=== PATIENT | female | born 1990 | race Caucasian/White ===

== ENCOUNTER 2022-05-06 13:37 | Emergency (ER) | payer BC, SELFPAY ==
[2022-05-06 13:48] VITALS: BP 151/90; PULSE 150; RESP 18; TEMP 37; O2SAT 100
[2022-05-06 14:25] LABS: Appearance Urine Slightly Cloudy (Clear); Bilirubin Urine Negative (Negative); Blood Urine Negative (Negative); Color Urine Yellow (Yellow); Glucose Urine Negative (Negative); Ketones Urine Negative (Negative); Leukocyte Esterase Urine Trace (Negative); Nitrite Urine Negative (Negative); Protein Urine Negative (Negative); Urobilinogen Urine 0.2 (0.2-1.0); pH Urine 5.5 (5.0-8.5)
[2022-05-06 14:29] LABS: HCG Qualitative* Negative (Negative)
[2022-05-06 14:48] LABS: RBC Urine 0-2 (0-2)
[2022-05-06 14:49] LABS: Bacteria Urine Few; Squamous Epithelial Cell Urine Few (None-Few)
--- NOTE | 2022-05-06 15:51 | ED.GENADULT ---
HPI - General Adult General Time Seen by Provider: 15:51 Date Seen: 05/06/22 Chief complaint: Abdominal Pain Stated complaint: Abdominal pain Time Seen by Provider: 05/06/22 15:39 Source: patient Mode of arrival: ambulatory Limitations: no limitations History of Present Illness HPI narrative: Pepper is a 31-year-old 2 para 2001 who presents to the emergency department from urgent care with abdominal pain. Patient states that over the last month she has had intermittent left-sided abdominal pain, she feels that when she eats it gets progressively worse, lasting 5-10 minutes, she tries to take Motrin for this, she gets associated nausea but no vomiting, she denies any diarrhea, constipation or blood in the stool. Not had any fevers or chills, no upper respiratory complaints, difficulty with breathing or chest pain. Pain is dull ache with intermittent sharp pains which shoots to her umbilicus area. Pain was quite severe in the waiting room, it is calmed down at this time, she drove here. She tried to get in to clinic and they were full, Urgent Care decided to send her to the emergency department. Patient has had normal menstrual cycles. She denies any back pain. No history of any abdominal surgeries, she did have an IUD surgical removed about for 5 years ago. Last menstrual period was April 13, she gets them monthly, lasting 7 days, they are heavy and painful, she is . she was seen in ED August 2021, imaging showed salpingitis on TV. Treated with Doxycycline. Patient was also seen at the [facility] for possible pelvic congestion clinic, recommendations at that time were for hormones. Prescribed naproxen at that time. Related Data Previous Rx's Medication Instructions Recorded norgestimate 0.25 mg-ethinyl 1 tab PO QDAY #84 tabs 05/14/22 estradiol 35 mcg tablet (Sprintec (28)) Allergies Allergy/AdvReac Type Severity Reaction Status Date / Time Gluten Meal Allergy Unknown Unknown Uncoded 05/14/22 13:52 Review of Systems Status of ROS: Reports: 10 or more systems reviewed and unremarkable except as noted in History and below [facility] Medical History (Updated 05/14/22 @ 16:58 by Megan Gold MD) Hemorrhagic cyst of left ovary (05/06/22) History of vaginal delivery Salpingitis (09/07/19) Surgical History (Updated 05/13/22 @ 12:57 by Aria Arizmendi) History of laparoscopy (08/12/16) Social History Smoking Status: Never smoker Do you use any of these nicotine containing products: None Second hand tobacco smoke exposure: No How often do you have a drink containing alcohol: never AUDIT-C Alcohol total score: 0 Non-prescribed substance use: denies use Exam Narrative: Exam Narrative: General: No obvious distress sitting comfortably, nontoxic in appearance HEENT: Oropharynx clear and moist, pupils equal round reactive to light, extraocular muscles intact Neck: Supple full range of motion : Lungs clear to auscultation bilaterally Heart: Sinus tachycardia, S1-S2 Abdomen: Soft, mild tenderness to palpation epigastric and left upper quadrant area, rebound or guarding, bowel sounds present Muscle skeletal: Moving her upper lower extremities with no difficulty : Neuro: awake and oriented x3 Const: Vital Signs, click to edit/add: Vital Signs - 24 hr 05/06/22 13:48 05/06/22 17:32 Temperature 98.6 F Pulse Rate [Pulse Oximeter] 150 H 133 H Respiratory Rate 18 18 Blood Pressure [Ri ght Upper Arm] 151/90 H 133/96 H Pulse Oximetry 100 100 Oxygen Delivery Me thod Room Air Course Course Hospital Course: 3:45 PM: AIDET performed. vitals show tachycardia, continue to monitor, workup will include IV peripheral, 0.9 normal saline bolus, 30 mg IV Toradol, urine , urinalysis and urine culture, CBC, CRP CMP and lipase, will await to see lab results to see if further imaging will be obtained. Differential diagnosis include but not limited to life-threatening diagnosis of appendicitis, ischemia, bowel perforation, bowel obstruction, ectopic , volvulus. Other considerations are gastritis, cholecystitis, pancreatitis, hepatitis, PID, cervicitis endometritis, IUP dysfunctional uterine bleeding ovarian cyst/torsion as well as other etiologies. Reevaluation(s) Reevaluation #1: Patient updated on her lab results, CBC showed a mild leukocytosis, CRP was less than 0.05, metabolic panel unremarkable, including liver function tests and lipase. Based on her history will obtain TV, and TA pelvic ultrasound, patient's pain has been controlled. Time: 18:04 Reevaluation #2: Patient was updated on her imaging results, Left ovarian structure is probably a hemorrhagic cyst. Otherwise normal sonographic appearance of the pelvis. Plan would be to discharge, urine culture was sent C she had few bacteria and trace leukocyte esterase, less likely urinary tract infection, she will continue with [id number] Motrin 600-800 mg every 4-6 hours as needed for pain, to follow-up with primary care provider or [facility] in the next 7-10 days, return precautions given. Time: 18:05 Vital Signs Vital signs: Initial Vital Signs Temperature 98.6 F 05/06/22 13:48 Temperature Source Temporal Artery Scan 05/06/22 13:48 Pulse Rate 150 H 05/06/22 13:48 Pulse Rhythm 05/06/22 13:48 Respiratory Rate 18 05/06/22 13:48 Blood Pressure 151/90 H 05/06/22 13:48 Blood Pressure Mean 110 05/06/22 13:48 Blood Pressure Position Sitting 05/06/22 13:48 Pulse Oximetry 100 05/06/22 13:48 Oxygen Delivery Method 05/06/22 13:48 Vital Signs Temperature 98.6 F 05/06/22 13:48 Pulse Rate 150 H 05/06/22 13:48 Respiratory Rate 18 05/06/22 13:48 Blood Pressure 151/90 H 05/06/22 13:48 Pulse Oximetry 100 05/06/22 13:48 Oxygen Delivery Method 05/06/22 13:48 Temperature 98.6 F 05/06/22 13:48 Pulse Rate 107 H 05/06/22 18:19 Respiratory Rate 18 05/06/22 18:19 Blood Pressure 118/94 H 05/06/22 18:28 Pulse Oximetry 100 05/06/22 18:19 Oxygen Delivery Method 05/06/22 18:19 Medical Decision Making Lab Data Labs: Lab Results 05/06/22 05/06/22 05/06/22 Range/Units 14:00 14:00 16:20 WBC 11.73 H (4.50-11.00) K/uL RBC 5.18 (4.00-5.20) m/uL Hgb 15.5 (12.0-16.0) gm/dL Hct 45.4 (33.0-51.0) % MCV 88 (80-100) fL MCH 30 (26-34) pg MCHC 34 (32-36) gm/dL RDW Coeff of Dione 11.7 (11.5-15.5) % Plt Count 340 (140-440) K/uL Neut % (Auto) 83.7 H (42.0-72.0) % Lymph % (Auto) 12.6 L (20-44) % [place] % (Auto) 3.2 (0.0-11.0) % Eos % (Auto) 0.0 (0.0-7.0) % Baso % (Auto) 0.4 (0.0-3.0) % Neut # (Auto) 9.80 H (1.7-7.0) K/uL Lymph # (Auto) 1.50 (0.90-2.90) K/uL [place] # (Auto) 0.40 (0.00-0.90) K/UL Eos # (Auto) 0.00 (0.00-0.50) K/uL Baso # (Auto) 0.00 (0.00-0.30) K/uL Abs Immat Gran (auto) 0.00 (0.00-0.30) K/uL Imm/Tot Granulo (auto) 0.1 % Sodium (135-149) mmol/L Potassium (3.6-5.1) mmol/L Chloride (96-114) mmol/L Carbon Dioxide (20-32) mmol/L BUN (5-24) mg/dL Creatinine (0.5-1.5) mg/dL Estimated GFR ml/min Glucose (60-115) mg/dL Calcium (8.4-10.6) mg/dL Total Bilirubin (0.1-1.5) mg/dL AST (12-35) U/L ALT (4-35) U/L Alkaline Phosphatase (40-150) U/L C-Reactive Protein (0.5-1.0) mg/dL Total Protein (6.0-8.3) g/dL Albumin (3.3-5.0) g/dL Lipase (23-300) U/L HCG, Qual Negative (Negative) Urine Color Yellow (Yellow) Urine Appearance Slightly Cloudy A (Clear) Urine pH 5.5 (5.0-8.5) Ur Specific [place] 1.010 (1.000-1.030) Urine Protein Negative (Negative) Urine Glucose (UA) Negative (Negative) Urine Ketones Negative (Negative) Urine Blood Negative (Negative) Urine Nitrite Negative (Negative) Urine Bilirubin Negative (Negative) Urine Urobilinogen 0.2 (0.2-1.0) Ur Leukocyte Esterase Trace A (Negative) Urine RBC 0-2 (0-2) Urine WBC 2-5 (0-5) Ur Squamous Epith Cells Few (None-Few) Urine Bacteria Few A (None) C.trachomatis Ampl DNA NOT DETECTED (No Detected) N.gonorrhoeae Ampl DNA NOT DETECTED (No Detected) 05/06/22 Range/Units 16:20 WBC (4.50-11.00) K/uL RBC (4.00-5.20) m/uL Hgb (12.0-16.0) gm/dL Hct (33.0-51.0) % MCV (80-100) fL MCH (26-34) pg MCHC (32-36) gm/dL RDW Coeff of Dione (11.5-15.5) % Plt Count (140-440) K/uL Neut % (Auto) (42.0-72.0) % Lymph % (Auto) (20-44) % [place] % (Auto) (0.0-11.0) % Eos % (Auto) (0.0-7.0) % Baso % (Auto) (0.0-3.0) % Neut # (Auto) (1.7-7.0) K/uL Lymph # (Auto) (0.90-2.90) K/uL [place] # (Auto) (0.00-0.90) K/UL Eos # (Auto) (0.00-0.50) K/uL Baso # (Auto) (0.00-0.30) K/uL Abs Immat Gran (auto) (0.00-0.30) K/uL Imm/Tot Granulo (auto) % Sodium 140 (135-149) mmol/L Potassium 3.9 (3.6-5.1) mmol/L Chloride 105 (96-114) mmol/L Carbon Dioxide 25 (20-32) mmol/L BUN 8 (5-24) mg/dL Creatinine 0.5 (0.5-1.5) mg/dL Estimated GFR 130 ml/min Glucose 101 (60-115) mg/dL Calcium 9.7 (8.4-10.6) mg/dL Total Bilirubin 0.8 (0.1-1.5) mg/dL AST 21 (12-35) U/L ALT 18 (4-35) U/L Alkaline Phosphatase 71 (40-150) U/L C-Reactive Protein < 0.5 L (0.5-1.0) mg/dL Total Protein 8.1 (6.0-8.3) g/dL Albumin 5.0 (3.3-5.0) g/dL Lipase 50 (23-300) U/L HCG, Qual (Negative) Urine Color (Yellow) Urine Appearance (Clear) Urine pH (5.0-8.5) Ur Specific [place] (1.000-1.030) Urine Protein (Negative) Urine Glucose (UA) (Negative) Urine Ketones (Negative) Urine Blood (Negative) Urine Nitrite (Negative) Urine Bilirubin (Negative) Urine Urobilinogen (0.2-1.0) Ur Leukocyte Esterase (Negative) Urine RBC (0-2) Urine WBC (0-5) Ur Squamous Epith Cells (None-Few) Urine Bacteria (None) C.trachomatis Ampl DNA (No Detected) N.gonorrhoeae Ampl DNA (No Detected) Discharge Plan Discharge Clinical Impression: Hemorrhagic cyst of left ovary Patient Disposition: Home, Self-Care Condition: Improved Instructions: Ovarian Cyst (ED) Additional Instructions: To take Motrin 600 mg or Tylenol 800 mg every 6 hours as needed for pain, to [facility] or Primary care provider in the next 7-10 days for follow up. Return if worsening symptoms. Activity Level: Activity as Tolerated Prescriptions: No Action norgestimate-ethinyl estradiol [Sprintec (28)] 0.25-35 mg-mcg tablet 1 tab PO QDAY Qty: 84 3RF Follow Up/Referrals: Kay Blanton DO [Primary Care Provider] - Stand Alone Forms: [employer] Info Instructions
[2022-05-06] MEDS: 0.9 % SODIUM CHLORIDE 1000 ml 1,000 ML IV (16:25)
[2022-05-06] MEDS: KETOROLAC 30 MG/ML inj IVP (16:25)
[2022-05-06 16:35] LABS: Basophils Percent Auto 0.4 % (0.0-3.0); Hematocrit 45.4 % (33.0-51.0); Hemoglobin* 15.5 gm/dL (12.0-16.0); Immature Granulocytes Pct Auto 0.1 %; Lymphocytes Percent Auto 12.6 % (20-44); Mean Corpuscular HGB Conc 34 gm/dL (32-36); Mean Corpuscular Hemoglobin 30 pg (26-34); Mean Corpuscular Volume 88 fL (80-100); Monocytes Percent Auto 3.2 % (0.0-11.0); Neutrophils Percent Auto 83.7 % (42.0-72.0); Platelet Count* 340 K/uL (140-440); RDW Coefficient of Variation % 11.7 % (11.5-15.5); Red Blood Count 5.18 m/uL (4.00-5.20); White Blood Count* 11.73 K/uL (4.50-11.00)
[2022-05-06 16:36] LABS: Slide Review Reflex No
[2022-05-06 16:55] LABS: Chloride* 105 mmol/L (96-114); Potassium* 3.9 mmol/L (3.6-5.1); Sodium* 140 mmol/L (135-149)
[2022-05-06 16:58] LABS: Carbon Dioxide* 25 mmol/L (20-32); Creatinine* 0.5 mg/dL (0.5-1.5); Estimated Glomerular Filt Rate 130 ml/min
[2022-05-06 16:59] LABS: Alanine Aminotransferase* 18 U/L (4-35); Alkaline Phosphatase* 71 U/L (40-150); Aspartate Amino Transferase* 21 U/L (12-35); Bilirubin Total* 0.8 mg/dL (0.1-1.5); Blood Urea Nitrogen* 8 mg/dL (5-24); Calcium* 9.7 mg/dL (8.4-10.6); Glucose* 101 mg/dL (60-115); Lipase* 50 U/L (23-300); Total Protein* 8.1 g/dL (6.0-8.3)
[2022-05-06 17:03] LABS: C Reactive Protein* < 0.5 mg/dL (0.5-1.0)
--- NOTE | 2022-05-06 17:08 | CRLHL7_ITS ---
For Patients: As a result of the Century Cures Act, medical imaging exams and procedure reports are released immediately into your electronic medical record. You may view this report before your referring provider. If you have questions, please contact your health care provider. INDICATION: Left lower quadrant pain. TECHNIQUE: Ultrasound pelvis transvaginal for better assessment or to better visualize the endometrium. Real-time sonographic images with spectral and color Doppler imaging of the ovaries were obtained. COMPARISON: None. FINDINGS: Uterus: 8.5 x 4.3 x 5.3 cm. Normal echotexture of the myometrium. No masses. Endometrium: Transvaginal imaging was performed to better evaluate the endometrium. Endometrial thickness measures 1.7 mm. No sign of endometrial mass or fluid. Ovaries: The right ovary measures 3.8 x 2.4 x 2.8 cm and left ovary measures 3.7 x 2.5 x 3.7 cm. Cystic structure in the left ovary measures 2.2 x 1.3 x 2 cm and is likely hemorrhagic cyst. No ovarian or adnexal masses. Normal arterial and venous blood flow in both ovaries. Cul-de-sac: Physiologic amount of free fluid. IMPRESSION: Left ovarian structure is probably a hemorrhagic cyst. Otherwise normal sonographic appearance of the pelvis. Dictated by Rachid Cruz MD @ 05/06/2022 5:59:07 PM (Electronically Signed)
[2022-05-06 17:32] VITALS: BP 133/96; PULSE 133; RESP 18; O2SAT 100
[2022-05-06 18:19] VITALS: PULSE 107; RESP 18; O2SAT 100
[2022-05-06 18:28] VITALS: BP 118/94
[2022-05-06 19:01] LABS: Chlamydia DNA Amplified* NOT DETECTED (No Detected); GC DNA Amplified* NOT DETECTED (No Detected)
== END 2022-05-06 18:30 | disposition home or self-care (01) ==
LOC: ED 18:18
PROVIDERS: Family Medicine; Emergency Provider Student in an Organized Health Care Education/Training Program; PCP Family Medicine
DX: N83.291 Other ovarian cyst, right side (principal)
CPT/HCPCS: 36415; 76830; 76857; 80053; 81003; 81015; 83690; 84703; 85025; 86140; 87086; 87491; 87591; 93976; 96361; 96374; 99283; 99284; J1885; J7030

== ENCOUNTER 2022-12-31 08:28 | Outpatient (CLI) | payer BC, SELFPAY ==
--- NOTE | 2022-12-31 09:00 | CRLHL7_ITS ---
For Patients: As a result of the Century Cures Act, medical imaging exams and procedure reports are released immediately into your electronic medical record. You may view this report before your referring provider. If you have questions, please contact your health care provider. INDICATION: 32 year-old female. Unintentional weight loss. Intermittent nausea. Intermittent pain. TECHNIQUE: CT of the abdomen and pelvis. 52 cc nonionic Isovue-370 administered. COMPARISON: Abdominal pelvic CT September 08, 2019. Correlation is made with a pelvic ultrasound May 06, 2022. FINDINGS: Clear included lung bases. The liver, spleen, pancreas, gallbladder, both adrenal glands and both kidneys are within normal limits. Normal caliber abdominal aorta and iliac arteries. Normal inferior vena cava. No ascites or lymphadenopathy. The stomach and duodenum although incompletely distended are within normal limits. There is no evidence for small or large bowel obstruction or ileus. No ascites or lymphadenopathy. The urinary bladder, uterus, and both adnexa are within normal limits. Normal included skeleton. IMPRESSION: Negative CT of the abdomen and pelvis. No significant change. Please note that all CT scans at this facility use dose modulation, iterative reconstruction, and/or weight-based dosing when appropriate to reduce radiation dose to as low as reasonably achievable. Dictated by Nathan Davila MD @ 12/31/2022 9:31:45 AM (Electronically Signed)
== END 2022-12-31 08:29 | disposition home or self-care (01) ==
PROVIDERS: PCP Family Medicine; Visit Provider Internal Medicine Gastroenterology
DX: R63.4 Abnormal weight loss (principal); R11.0 Nausea
CPT/HCPCS: 74177; Q9967

== ENCOUNTER 2023-03-20 07:51 | Emergency (ER) | payer BC, SELFPAY ==
[2023-03-20 08:17] VITALS: BP 133/73; PULSE 90; RESP 18; TEMP 36.8; O2SAT 100; BMI 17.7
--- NOTE | 2023-03-20 08:30 | ED.GENADULT ---
HPI - General Adult General Chief complaint: Abdominal Pain Stated complaint: pelvic pain Time Seen by Provider: 03/20/23 07:59 Source: patient Mode of arrival: ambulatory Limitations: no limitations History of Present Illness HPI narrative: Patient is a 32-year-old with history of ovarian cysts who developed sudden onset of pelvic pain earlier this morning. It was sharp and she says severe at the time although it has improved now. More in the left lower quadrant than the right but she says it involved really the entire pelvis. She had nausea at that time, no vomiting. She denies constipation or diarrhea, black or bloody stools, fevers, urinary symptoms. She has been previously on OCPs to help regulate periods but she discontinued those recently due to nausea. She does not have any specific concerns about . She does not have any current vaginal bleeding. Her only abdominal surgery was for retrieval of an IUD that migrated outside of the uterus. Related Data Home Medications Medication Instructions Recorded Confirmed No Known Home Medications 03/20/23 03/20/23 Allergies Allergy/AdvReac Type Severity Reaction Status Date / Time Gluten Meal Allergy Unknown Unknown Uncoded 12/31/22 09:19 Review of Systems Status of ROS: Reports: 10 or more systems reviewed and unremarkable except as noted in History and below [facility] Medical History History of vaginal delivery Salpingitis (09/07/19) ?N70.91 - Salpingitis, unspecified (ICD-10) Hemorrhagic cyst of left ovary (05/06/22) ?N83.202 - Unspecified ovarian cyst, left side (ICD-10) Surgical History History of laparoscopy (08/12/16) ?Z98.890 - Other specified postprocedural states (ICD-10) Social History Smoking Status: Never smoker Do you use any of these nicotine containing products: None Second hand tobacco smoke exposure: No How often do you have a drink containing alcohol: never AUDIT-C Alcohol total score: 0 Non-prescribed substance use: denies use Exam Narrative: Exam Narrative: Vital signs as noted above. In general, an alert, well-appearing patient. Looks comfortable. Head: Normocephalic, atraumatic. Eyes: Pupils are equal reactive. Extraocular movements are full. Conjunctivae are normal. ENT: Mucous membranes are moist. Neck: Supple without lymphadenopathy. Heart: Regular rate and rhythm. No murmur or rub. Lungs: Clear bilaterally. No increased work of breathing, crackles or wheezes. Abdomen: Soft and nontender. Extremities: Well perfused. No edema. No calf tenderness. Pulses intact. Neurologic: Patient is alert and oriented to person and place. Speech is fluent. Face is symmetric. Moves all extremities equally. Affect: Normal. Skin: Warm and dry. Well perfused. Const: Vital Signs, click to edit/add: Vital Signs - 24 hr 03/20/23 08:17 Temperature 98.2 F Pulse Rate [Right Pulse Oximeter] 90 Respiratory Rate 18 Blood Pressure [Ri ght Upper Arm] 133/73 Pulse Oximetry 100 Oxygen Delivery Me thod Room Air Documenting provider has reviewed patient's vital signs: yes Course Course ED Course: Patient did not require anything for pain while here. A urinalysis showed 2-5 red cells, 5-10 white blood cells. She did not have any urinary symptoms, I do not think that it is worthwhile treating for urinary tract infection. Likewise, with a minimal number of red blood cells I felt kidney stone was less likely and decided to pursue pelvic ultrasound instead. She did find the ultrasound uncomfortable and has a little more pain afterwards but again denied the need for anything for pain. Ultrasound read as follows:COMPARISON: CT dated 12/31/2022. FINDINGS: Uterus: Retroflexed, measuring 5.6 x 4.7 x 8 cm. Normal echotexture of the myometrium. No masses. Endometrium: Transvaginal imaging was performed to better evaluate the endometrium. Endometrial thickness measures 12 mm. No sign of endometrial mass or fluid. Right ovary 4.2 x 2.1 x 4.4 cm. Left ovary 2.4 x 2.2 x 3.8 cm. Right ovarian hemorrhagic cyst measuring less than 2 cm with internal reticular echoes for which management guidelines recommend no routine follow-up. Normal right ovarian venous and left ovarian arterial blood flow is demonstrated on spectral Doppler. Cul-de-sac: Small volume pelvic ascites within physiologic limits of normal. Review of the recent prior abdominal pelvic CT dated 12/31/2022 is notable for prominent bilateral periuterine vessels with a right ovarian vein measuring 7 mm in caliber (series 2; image 74). Consider pelvic congestion syndrome as the cause for the patient`s symptoms. IMPRESSION: Small hemorrhagic right ovarian follicular cyst for which consensus guidelines recommend no routine follow-up. Retroflexed uterus. Presentation is consistent with hemorrhagic cyst, at this time the ovaries show good blood flow, her pain is improved, and she does not have any large this. I think torsion is very unlikely. Abdominal exam is benign. Other labs show a normal white blood cell counts, CRP less than 0.5, metabolic panel is normal. Patient is comfortable with discharge. Reviewed with her that pain should be stable to improving. If she has recurrence of severe pain, develops fever, vomiting or other worsening she should return for re-evaluation. Otherwise follow up as needed with her gynecologic MD. Vital Signs Vital signs: Initial Vital Signs Temperature 98.2 F 03/20/23 08:17 Temperature Source Temporal Artery Scan 03/20/23 08:17 Pulse Rate 90 03/20/23 08:17 Respiratory Rate 18 03/20/23 08:17 Blood Pressure 133/73 03/20/23 08:17 Blood Pressure Mean 93 03/20/23 08:17 Blood Pressure Position Sitting 03/20/23 08:17 Pulse Oximetry 100 03/20/23 08:17 Oxygen Delivery Method Room Air 03/20/23 08:17 Vital Signs Temperature 98.2 F 03/20/23 08:17 Pulse Rate 90 03/20/23 08:17 Respiratory Rate 18 03/20/23 08:17 Blood Pressure 133/73 03/20/23 08:17 Pulse Oximetry 100 03/20/23 08:17 Oxygen Delivery Method Room Air 03/20/23 08:17 Temperature 98.2 F 03/20/23 08:17 Pulse Rate 90 03/20/23 08:17 Respiratory Rate 18 03/20/23 08:17 Blood Pressure 133/73 03/20/23 08:17 Pulse Oximetry 100 03/20/23 08:17 Oxygen Delivery Method Room Air 03/20/23 08:17 Medical Decision Making Lab Data Labs: Lab Results 03/20/23 03/20/23 Range/Units 08:29 08:44 WBC 8.19 (4.50-11.00) K/uL RBC 4.93 (4.00-5.20) m/uL Hgb 14.9 (12.0-16.0) gm/dL Hct 43.7 (33.0-51.0) % MCV 89 (80-100) fL MCH 30 (26-34) pg MCHC 34 (32-36) gm/dL RDW Coeff of Dione 11.9 (11.5-15.5) % Plt Count 304 (140-440) K/uL Neut % (Auto) 78.3 H (42.0-72.0) % Lymph % (Auto) 15.9 L (20-44) % [place] % (Auto) 5.1 (0.0-11.0) % Eos % (Auto) 0.4 (0.0-7.0) % Baso % (Auto) 0.2 (0.0-3.0) % Neut # (Auto) 6.40 (1.7-7.0) K/uL Lymph # (Auto) 1.30 (0.90-2.90) K/uL [place] # (Auto) 0.40 (0.00-0.90) K/UL Eos # (Auto) 0.03 (0.00-0.50) K/uL Baso # (Auto) 0.02 (0.00-0.30) K/uL Abs Immat Gran (auto) 0.01 (0.00-0.30) K/uL Imm/Tot Granulo (auto) 0.1 % Sodium 138 (135-149) mmol/L Potassium 4.5 (3.6-5.1) mmol/L Chloride 104 (96-114) mmol/L Carbon Dioxide 26 (20-32) mmol/L Anion Gap 8 (7-15) mEq/L BUN 14 (5-24) mg/dL Creatinine 0.6 (0.5-1.5) mg/dL Estimated Creat Clear 101.12 Estimated GFR 124 ml/min Glucose 99 (60-115) mg/dL Calcium 9.3 (8.4-10.6) mg/dL C-Reactive Protein < 0.5 L (0.5-1.0) mg/dL Urine Color Yellow (Yellow) Urine Appearance Clear (Clear) Urine pH 7.0 (5.0-8.5) Ur Specific [place] 1.025 (1.000-1.030) Urine Protein Negative (Negative) Urine Glucose (UA) Negative (Negative) Urine Ketones 1+ A (Negative) Urine Blood Negative (Negative) Urine Nitrite Negative (Negative) Urine Bilirubin Negative (Negative) Urine Urobilinogen 1.0 (0.2-1.0) Ur Leukocyte Esterase Trace A (Negative) Urine RBC 2-5 A (0-2) Urine WBC 5-10 A (0-5) Ur Squamous Epith Cells Moderate A (None-Few) Amorphous Sediment Few A (None) Urine Bacteria Moderate A (None) Urine HCG, Qual Negative (Negative) Discharge Plan Discharge Clinical Impression: Hemorrhagic cyst of right ovary Patient Disposition: Home, Self-Care Condition: Improved Instructions: Ovarian Cyst (ED) Additional Instructions: Ibuprofen or Tylenol if needed. Return for severe pain, fever, vomiting or other worsening. Prescriptions: No Action No Known Home Medications Follow Up/Referrals: Kay Blanton DO [Primary Care Provider] - Stand Alone Forms: [facility] Info Instructions
[2023-03-20 08:52] LABS: Appearance Urine Clear (Clear); Bilirubin Urine Negative (Negative); Blood Urine Negative (Negative); Color Urine Yellow (Yellow); Glucose Urine Negative (Negative); Ketones Urine 1+ (Negative); Leukocyte Esterase Urine Trace (Negative); Nitrite Urine Negative (Negative); Protein Urine Negative (Negative); Specific Gravity Urine 1.025 (1.000-1.030)
[2023-03-20 08:54] LABS: Ur HCG Qualitative* Negative (Negative)
[2023-03-20 08:57] LABS: Basophils Absolute Auto 0.02 K/uL (0.00-0.30); Basophils Percent Auto 0.2 % (0.0-3.0); Eosinophils Absolute Auto 0.03 K/uL (0.00-0.50); Eosinophils Percent Auto 0.4 % (0.0-7.0); Hematocrit 43.7 % (33.0-51.0); Hemoglobin* 14.9 gm/dL (12.0-16.0); Immature Granulocytes Abs Auto 0.01 K/uL (0.00-0.30); Immature Granulocytes Pct Auto 0.1 %; Lymphocytes Percent Auto 15.9 % (20-44); Mean Corpuscular HGB Conc 34 gm/dL (32-36); Mean Corpuscular Hemoglobin 30 pg (26-34); Mean Corpuscular Volume 89 fL (80-100); Monocytes Percent Auto 5.1 % (0.0-11.0); Neutrophils Percent Auto 78.3 % (42.0-72.0); Platelet Count* 304 K/uL (140-440); RDW Coefficient of Variation % 11.9 % (11.5-15.5); Red Blood Count 4.93 m/uL (4.00-5.20); White Blood Count* 8.19 K/uL (4.50-11.00)
[2023-03-20 08:58] LABS: Slide Review Reflex No
[2023-03-20 09:15] LABS: Chloride* 104 mmol/L (96-114); Sodium* 138 mmol/L (135-149)
[2023-03-20 09:16] LABS: Amorphous Sediment Urine Few; Bacteria Urine Moderate; Squamous Epithelial Cell Urine Moderate (None-Few)
[2023-03-20 09:16] LABS: Potassium* 4.5 mmol/L (3.6-5.1)
[2023-03-20 09:18] LABS: Creatinine* 0.6 mg/dL (0.5-1.5); Est. Creatinine Clearance* 101.12; Estimated Glomerular Filt Rate 124 ml/min
[2023-03-20 09:19] LABS: Anion Gap 8 mEq/L (7-15); Blood Urea Nitrogen* 14 mg/dL (5-24); Calcium* 9.3 mg/dL (8.4-10.6); Carbon Dioxide* 26 mmol/L (20-32); Glucose* 99 mg/dL (60-115)
--- NOTE | 2023-03-20 09:19 | CRLHL7_ITS ---
For Patients: As a result of the Cures Act, medical imaging exams and procedure reports are released immediately into your electronic medical record. You may view this report before your referring provider. If you have questions, please contact your health care provider. INDICATION: Bilateral pelvic pain, left greater than right. TECHNIQUE: Endovaginal pelvic ultrasound with spectral and color Doppler. COMPARISON: CT dated 12/31/2022. FINDINGS: Uterus: Retroflexed, measuring 5.6 x 4.7 x 8 cm. Normal echotexture of the myometrium. No masses. Endometrium: Transvaginal imaging was performed to better evaluate the endometrium. Endometrial thickness measures 12 mm. No sign of endometrial mass or fluid. Right ovary 4.2 x 2.1 x 4.4 cm. Left ovary 2.4 x 2.2 x 3.8 cm. Right ovarian hemorrhagic cyst measuring less than 2 cm with internal reticular echoes for which management guidelines recommend no routine follow-up. Normal right ovarian venous and left ovarian arterial blood flow is demonstrated on spectral Doppler. Cul-de-sac: Small volume pelvic ascites within physiologic limits of normal. Review of the recent prior abdominal pelvic CT dated 12/31/2022 is notable for prominent bilateral periuterine vessels with a right ovarian vein measuring 7 mm in caliber (series 2; image 74). Consider pelvic congestion syndrome as the cause for the patient`s symptoms. IMPRESSION: Small hemorrhagic right ovarian follicular cyst for which consensus guidelines recommend no routine follow-up. Retroflexed uterus. Review of the recent prior abdominal pelvic CT dated 12/31/2022 is notable for prominent bilateral periuterine vessels with a right ovarian vein measuring 7 mm in caliber (series 2; image 74). Consider pelvic congestion syndrome as the cause for the patient`s symptoms. Dictated by Kev Sosa MD @ 03/20/2023 10:04:20 AM (Electronically Signed)
[2023-03-20 09:23] LABS: C Reactive Protein* < 0.5 mg/dL (0.5-1.0)
[2023-03-20 10:54] VITALS: BP 118/81; PULSE 78; RESP 16; O2SAT 99
== END 2023-03-20 10:55 | disposition home or self-care (01) ==
PROVIDERS: Emergency Provider Emergency Medicine; PCP Family Medicine
DX: N83.291 Other ovarian cyst, right side (principal)
CPT/HCPCS: 36415; 76830; 80048; 81001; 81025; 85025; 86140; 87086; 93976; 99283; 99284

== ENCOUNTER 2024-03-24 06:00 | Day surgery (SDC) | payer BC, SELFPAY ==
[2024-03-24] VITALS (14 sets, daily range): BP systolic 92–121; BP diastolic 54–77; PULSE 58–85; RESP 12–18; TEMP 36.3–37.1; O2SAT 95–100; BMI 17.7
--- OUTSIDE RECORDS SUMMARY | 2024-03-24 06:02 | XMS_ITS | Clinical Summary ---
Author Organization [employer] [facility] Address [place], [place] [address] Care Team Providers Care Data Security Coordinator Name Role Phone Kay Blanton Primary Care Provider [phone] Allergies No known active allergies Medications Medication Sig Dispensed Refills Start Date End Date Status triamcinolone 0.1 % ointmentIndications:C hronic eczema Apply topically to affected area(s) two times daily. 80 g 10/16/2023 Active norethindrone-eth estradiol, 1-35 mg-mcg, (ORTHO-NOVUM 135; NORTREL 1/35) 1-35 mg-mcg tabletIndications:Enc ounter for initial prescription of contraceptive pills Take 1 Tablet by mouth once daily. 90 Tablet 3 11/03/2023 Active triamcinolone 0.5 % creamIndications:Spon giotic dermatitis Apply to affected areas 1-2x's a day until improved. Try limit use to < 14 days straight. 454 g 01/09/2024 Active Active Problems Problem Noted Date Diagnosed Date Pap smear for cervical cancer screening 10/03/19 23 Overview (10/02/2022): 08/2022 NIL/HPV Negative Plan: Pap and HPV due 08/2027 Encounter for supervision of other normal , first trimester 03/05/2018 Overview (10/28/2018): Donn. May wait on gender til delivery. Dating by 6wk US with unknown exact LMP GBS NEGATIVE Component Latest Ref Rng & Units 07/30/2018 10/06/2018 HEMOGLOBIN 12.0 - 16.0 g/dL 12.5 MCV 80 - 100 fL 92 Culture No Group B Streptococcus isolated. 20 week US: IMPRESSION: 1.Cephalic presentation. 2.No intrinsic abnormalities noted on anatomic survey. 3.Composite ultrasound age 21 weeks 2 days with JAJA of 10/27/2018 with an earlier established JAJA of 11/01/2018. Estimated Date of Delivery: None noted. No LMP recorded (lmp unknown). Patient is . Last Tdap- 08/27/2018 Last Flu vaccine- 03/05/2018 Glucose (GTT) result- Component Latest Ref Rng & Units 07/30/2018 HEMOGLOBIN 12.0 - 16.0 g/dL 12.5 MCV 80 - 100 fL 92 GLUCOSE,GESTATIONAL 65 - 139 mg/dL 104 No Known Allergies Obstetric History T1 L1 SAB0 TAB0 Ectopic0 Multiple0 Live Births1 # Outcome Date GA Lbr Wesley/2nd Weight Sex Delivery Anes PTL Lv 2 Current 1 Term 06/15/16 40w1d F VAGINAL VACU THALIA Create lab flowsheet for OB labs- Component Latest Ref Rng & Units 03/05/2018 03/05/2018 03/05/2018 4:07 PM 4:07 PM 4:07 PM HEMOGLOBIN 12.0 - 16.0 g/dL 14.6 MCV 80 - 100 fL 89 ANTIBODY SCREEN Negative Negative SPECIMEN EXPIRATION DATE/TIME 03/08/18 23:59 RUBELLA IGG ANTIBODY Positive 3.68 HIV-1/HIV-2 ANTIBODY Non-Reactive Non-Reactive ABORH O Rh Positive HBSAG Nonreactive Nonreactive TREPONEMA PALLIDUM Negative Negative LYME SCREEN W/REFLEX WEST BLOT Negative Negative HEMOGLOBIN A1C SCREENING <6.4 % 4.7 Past Medical History: Diagnosis Date ? ? Encounter for supervision of other normal , first trimester 03/05/2018 ? ? Irregular menstrual cycle 01/29/2012 ? ? No Significant Past Medical History Past Surgical History: Procedure Laterality Date ? ? NO PREVIOUS SURGERY No data on file. 2nd Problems (from 03/05/18 to present) No problems associated with this episode. CLINTON Ramos.....04/01/2018 12:42 PM Encounter for care in first trimester of first 11/16/2015 Overview (06/04/2016): CHEMA Donn. Blood type O+ Dating by 6w6d US not c/w LMP Tdap and flu given 03/19/16 It's a girl. Dad does not want to cut cord GBS negative Irregular menstrual cycle 01/29/2012 Encounters Date Type Department Care Team Description 02/12/2024 Medical Messaging [facility] [address] [place] [id number] Kay Blanton DO pelvic pain 02/06/2024 4:00 PM CDT Ancillary Procedure [facility] [address] [place] [address] 02/06/2024 Travel 01/09/2024 Orders Only [facility] [address] [place] [address] Kay Blanton DO <No scans attached> 01/06/2024 9:10 AM CDT Office Visit [facility] [address] [place] [address] Kay Blanton DO Derm Problem (Worsening skin) 01/06/2024 Travel from Last 3 Months Immunizations Name Administration Dates Next Due AMB Influenza, IIV4 PF (=>6 mos Flulaval,Fluzone Fluarix)(Flu Clinic Only) 04/13/2019 DTaP 02/13/1998 DTaP-HIB (TriHIBIT) 06/26/1994, 3,04/10/1993,02/06 Hepatitis B (Peds) 01/31/2003,09/02/2002, 003 Influenza, IIV3 (Age >=3 years) 02/05/2011 Influenza, IIV4 02/10/2020, 8,03/17/2017,03/19 MENINGOCOCCAL VACCINE 2 VIAL 2MO-55YO (MENVEO) 02/05/2011 MMR 09/28/2004,03/13/1994 Oral Polio Vaccine 06/26/1994, 4,04/10/1993,02/06 Rabies Vaccine 07/06/2012,06/22/2012,06/15/2012 Td (Age >=7 Years) 09/28/2004 Tdap 08/27/2018,03/19/2016,02/05/2011 Family History Medical History Relation Name Comments Good Health Brother 1 Kristofer Good Health Brother 2 Chris did have murmur at but told ok Good Health Father Raz Good Health Mother Suzy Good Health Sister 1 Delmar Good Health Sister 2 Ali Asthma No Family History Relation Name Status Comments Brother 1 Kristofer Brother 2 Vader Father Raz Mother Suzy Sister 1 Delmar Sister 2 Ali Social History Tobacco Use Types Packs/Day Years Used Date Smoking Tobacco: Never Passive Smoke Exposure: Never Smokeless Tobacco: Never Alcohol Use Standard Drinks/Week Comments No 0 (1 standard drink = 0.6 oz pur e alcohol) PHQ-2 Answer Date Recorded PHQ-2 TOTAL SCORE 0 11/03/2023 Social Connections Answer Date Recorded Frequency of Communication with Friends and Fami ly 0 11/03/2023 Financial Resource Strain Answer Date R ecorded Difficulty of Paying Living Expenses 3 11/03/2023 Difficulty of Paying Living Expenses Not on file 11/03/2023 Food Insecurity Answer Date Recorded Worried About Running Out of Food in the Last Ye ar 1 11/03/2023 Transportation Needs Answer Date Record ed Lack of Transportation (Medical) 1 11/03/2023 Housing Stability Answer Date Recorded Unable to Pay for Housing in the Last Year 1 11/03/2023 Sex and Gender Information Value Date Recorded Sex Assigned at Not on file Gender Identity Not on file Sexual Orientation Not on file Obstetrics History Para Term AB IAB SAB Ectopic Multiple Livin g Live Births 2 2 2 0 0 0 0 0 0 2 2 Date Outcome GA Total Labor Labor/2nd/3rd Weight Sex Type Anes PTL Thalia A1 A5 Name Clin Term Vag Living 06/15 Term 40w 1d F VAGINAL VACU Living Last Filed Vital Signs Vital Sign Reading Time Taken Comments Blood Pressure 126/78 01/06/2024 9:13 AM CDT Pulse 84 01/06/2024 9:13 AM CDT Temperature 36.4 ??C (97.6 ??F) 09/14/2019 7:33 AM CD T Respiratory Rate - - Oxygen Saturation 100% 11/03/2023 8:55 AM CDT Inhaled Oxygen Concentration - - Weight 47.6 kg (105 lb) 01/06/2024 9:13 AM CDT Height 162.6 cm (5' 4) 11/03/2023 8:55 AM CDT Body Mass Index 18.02 11/03/2023 8:55 AM CDT Plan of Treatment Health Maintenance Due Date Last Done Comments COVID-19 vaccine series (2023- season) 2024 Influenza for age 9-49 02/15/2024 , 04/13/2019, 03/05/2018, Additional history exists BMI (ht and wt on same day) for age 18+ 11/02/2024 11/03/2023, 09/04/2022, 12/21/2018, Additional history exists Depression screening for age 12+ 11/02/2024 11/03/2023, 09/04/2022, 01/12/2021, Additional history exists Pap test for age 21-65 09/05/2027 , 09/04/2022, 12/21/2018, Additional history exists Tetanus booster 08/27/2028 08/27/2018, 100 09/2015, 02/05/2011, Additional history exists Hepatitis C screening for age 18-79 Completed 10/31/2015 HIV for age 15-65 Completed 03/05/2018, 10/31/2015 Tdap Completed 08/27/2018, 100 09/2015, 02/05/2011 Pneumococcal series for age 6-64 Aged Out No longer eligible based on patient's age to complete this topic Procedures Procedure Name Priority Date/Time Associated Diagnosis Comments US PELVIS COMPLETE TV Routine 02/06/2024 4:16 PM CDT Abdominal pain, LLQ (left lower quadrant) PATH TISSUE EXAM Routine 01/06/2024 10:1 5 AM CDT Rash TEODORO PREP,SKIN,HAIR,NAIL Routine 01/06/2024 10:12 AM CDT Rash HPV HIGH RISK Routine 09/04/2022 4:21 PM CDT Cervical cancer screening ANTI HIV 1/2 Routine 03/05/2018 4:07 PM CDT Encounter for supervision of other normal , first trimester ANTI HCV Routine 10/31/2015 9:13 AM CDT , unspecified gestational age from Last 3 Months or Most Recently Relevant to Health Maintenance Results * US PELVIS COMPLETE TV (02/06/2024 4:16 PM CDT) Anatomical Region Laterality Modality Pelvis, OVARIES, UTERUS Ultrasou nd 02/08/2024 8:13 AM CDT Impressions 02/08/2024 8:13 AM CDT Normal pelvic ultrasound. No findings to explain pain. Dictated by Blair Thorpe MD @ 02/08/2024 8:13:48 AM (Electronically Signed) Narrative 02/08/2024 8:13 AM CDT For Patients: ??As a result of the Cures Act, medical imaging exams and procedure reports are released immediately into your electronic medical record. ??You may view this report before your referring provider. ??If you have questions, please contact your health care provider. INDICATION: Abdominal pain, left lower quadrant. TECHNIQUE: Ultrasound pelvis transvaginal for better assessment or to better visualize the endometrium. Real-time sonographic images with spectral and color Doppler imaging of the ovaries were obtained. COMPARISON: 03/20/2023. FINDINGS: Uterus: 6 x 5 x 4 cm. ??Normal echotexture of the myometrium. ??No masses. ?? Endometrium: Transvaginal imaging was performed to better evaluate the endometrium. ??Endometrial thickness measures 5 mm. ?? No sign of endometrial mass or fluid. ?? Right ovary 3 x 3 x 2 cm. Left ovary 3 x 2 x 1 cm. No ovarian or adnexal masses. Normal arterial and venous blood flow is demonstrated in both ovaries. Cul-de-sac: No significant free fluid. ? Procedure Note Blair hTorpe MD - 02/08/2024 For Patients: As a result of the Cures Act, medical imagingexams and procedure reports are released immediately into your electronicmedical record. You may view this report before your referring provider.If you have questions, please contact your health care provider. INDICATION: Abdominal pain, left lower quadrant. TECHNIQUE: Ultrasound pelvis transvaginal for better assessment or to bettervisualize the endometrium. Real-time sonographic images with spectral andcolor Doppler imaging of the ovaries were obtained. COMPARISON: 03/20/2023. FINDINGS: Uterus: 6 x 5 x 4 cm. Normal echotexture of the myometrium. No masses. Endometrium: Transvaginal imaging was performed to better evaluate theendometrium. Endometrial thickness measures 5 mm. No sign ofendometrial mass or fluid. Right ovary 3 x 3 x 2 cm. Left ovary 3 x 2 x 1 cm. No ovarian or adnexalmasses. Normal arterial and venous blood flow is demonstrated in bothovaries. Cul-de-sac: No significant free fluid. IMPRESSION: Normal pelvic ultrasound. No findings to explain pain. Dictated by Blair Thorpe MD @ 02/08/2024 8:13:48 AM (Electronically Signed) Kay lBanton DO US * PATH TISSUE EXAM (01/06/2024 10:15 AM CDT) Case Report Pathology Report ?Case: [id number] ? Authorizing Provider: ??Kay Blanton, DO ?Collected: ? 01/06/2024 1015 ? Ordering Location: ? [facility] ?? Received: ?01/06/2024 1024 ? Clinic ? Pathologist: ? Asiya Greene MD ? Specimen: ?Right Arm, rash ? 01/09/2024 9:36 AM T [facility] Final Diagnosis A) SKIN, RIGHT ARM, BIOPSY: 1. Subacute spongiotic dermatitis, see comment 2. GMS stain is negative for fungal microorganisms 01/09/2024 9:36 AM [facility] Comment Specific features are not seen to favor etiology. Prior treatment may alter histomorphology and additional sampling may be helpful if indicated clinically. 01/09/2024 9:36 AM T [facility] Clinical Information Rash 01/09/2024 9:36 AM [facility] Gross Description A) Received in formalin, labeled with the patient's name and date of , is a 0.3 x 0.3 x 0.3 cm skin punch biopsy. The skin surface is pale-aguillon and smooth with an obvious lesion not identified. ??The specimen is inked blue, left intact and entirely submitted in one cassette. TLF 01/06/2024 01/09/2024 9:36 AM T [facility] Microscopic Description The final diagnosis is based on microscopic examination of appropriate sections of all specimens. 01/09/2024 9:36 AM T [facility] Additional Information Interpreted at [facility], Central Laboratory - [address], [place] [address] 01/09/2024 9:36 AM CDT [facility] Other (Right Arm) Non-Blood / Unknown 01/06/2024 10:15 AM CDT 01/06/2024 10:24 AM CDT Kay Blanton DO PATHOLOGY/CYTOLOGY [facility] [address] [place] [address], * TEODORO PREP,SKIN,HAIR,NAIL (01/06/2024 10:12 AM CDT) OBSERVATION No fungal elements seen 01/06/2024 10:[address] [facility] Other SPECIMEN FROM SKIN OBTAINED BY SCRAPING / Unknown Non-Blood / Unknown 01/06/2024 10:12 AM CDT 01/06/2024 10:22 AM CDT Kay Blanton DO MICROBIOLOGY [facility] [address] [place] [address], * HPV HIGH RISK (09/04/2022 4:21 PM CDT) TYPE 16 Negative Negative 09/09/2022 1:47 PM CDT [facility] TYPE 18 Negative Negative 09/09/2022 1:47 PM CDT [facility] OTHER HIGH RISK TYPES Negative Negative 09/09/2022 1:47 PM CDT [facility] Other (Cervical) Non-Blood / Unknown 09/04/2022 4:21 PM CDT 09/06/2022 11:33 AM CDT Narrative [facility] - 09/09/2022 1:47 PM CDT HPV types 16, 18, 31, 33, 35, 39, 45, 51, 52, 56, 58, 59, 66 and 68 DNA were undetectable or below the pre-set threshold. Methodology: Juwan Andie 4800 HPV Test Kay Blanton DO MICROBIOLOGY [facility] [address] [place] [address], * ANTI HIV 1/2 (03/05/2018 4:07 PM CDT) HIV-1/HIV-2 ANTIBODY Non-Reacti ve Non-Reacti ve 03/05/2018 9:45 PM CDT [facility] Comment:HIV-1 p24 and HIV-1/ HIV-2 Ab not detected. Blood BLOOD SPECIMEN / Unknown Butterfly / Unknown 03/05/2018 4:07 PM CDT 03/05/2018 4:08 PM CDT Unique Mason NP SEND OUTS Performing Organization Address City/[facility]/ZIP Co de Phone Number [facility] [address] [place] [address], * ANTI HCV (10/31/2015 9:13 AM CDT) HEPATITIS C ANTIBODY Non-Reacti ve Non-Reacti ve 10/31/2015 3:44 PM CDT [facility] Blood specimen (specimen) BLOOD SPECIMEN / Unknown Venipuncture / Unknown 10/31/2015 9:13 AM CDT 10/31/2015 9:13 AM CDT Narrative [facility] - 10/31/2015 3:44 PM CDT Antibodies to HCV not detected; does not exclude the possibility of exposure to HCV. Margareth GOMEZ SEND OUTS [facility] [address] [place] [address], from Last 3 Months or Most Recently Relevant to Health Maintenance Care Teams Data Security Coordinator Relationship Specialty Start Date End Date Kay Blanton [place] [address] [address] PCP - General Family Practice 10/24/15
[2024-03-24] MEDS: SODIUM CHLORIDE 0.9 % (FLUSH) 10 ML SYRINGE IVF (06:42)
[2024-03-24 06:55] LABS: Ur HCG Qualitative* Negative (Negative)
--- NOTE | 2024-03-24 07:21 | W.PM.H&PU ---
History & Physical Update History & Physical Update H&P Reviewed and patient assessed: No changes noted
[2024-03-24] MEDS: BUPIVACAINE 0.25% 30 ML INJECTION (08:12)
[2024-03-24] MEDS: SILVER NITRATE APPLICATOR 1 EACH STICK..EA. TOPICAL (08:13)
--- NOTE | 2024-03-24 08:35 | W.ANESCHARGE ---
Anesthesia Charges Start Date/Time Anesthesia Start Date: 03/24/24 Anesthesia Start Time: 07:14 Stop Date/Time Anesthesia Stop Date: 03/24/24 Anesthesia Stop Time: 08:33
--- NOTE | 2024-03-24 08:36 | P.GYNPRC_ITS ---
Procedure Note Date of procedure: 03/24/24 Will [facility] bill your pro fee for this procedure?: Yes Pre-op diagnosis: Chronic pelvic pain Dysmenorrhea Post-op diagnosis: Filmy adhesions of the cecum to the abdominal sidewall Otherwise as above Procedure: Laparoscopy with limited lysis of adhesions Placement of Mirena IUD Anesthesia: GETA Complications: None Surgeon: Mag Anderson MD Advanced Practice Nurse Psychotherapist: Cami Dejesus Estimated blood loss (mL): 5 IV fluids (mL): 800 Urine Output (mL): 300 Pathology: none sent Condition: stable Disposition: same day Findings: 1. Upon pelvic exam under anesthesia, the cervix and vagina were normal in appearance. Uterus was mobile and anteverted, of normal size and texture. There were no palpable adnexal masses. 2. Upon laparoscopy, survey of the upper abdomen revealed a normal appearance to the inferior edge of the liver, gallbladder and stomach. There were filmy adhesions of the cecum to the pelvic sidewall. The appendix was not visualized. Bowels were otherwise grossly normal in appearance. Survey of the pelvis revealed normal appearance to the uterus. Bilateral tubes and ovaries were normal in appearance. The cul-de-sac and bladder reflection were normal in appearance. Procedure Description: Patient was taken to the operating room with IV running. She was positioned in dorsal lithotomy position with her legs fully supported in Yellofin stirrups. General anesthesia was administered. She was prepped and draped in the usual sterile fashion. Bimanual exam was performed for the above-noted findings. Speculum was inserted. A single-toothed uterine manipulator was inserted through the cervix into the lower uterine segment, and affixed to the anterior cervical lip. Speculum was removed. Rocha catheter was placed. Patient's legs were placed in neutral position. Attention was turned to patient's abdomen. The infraumbilical area was infiltrated with small amount of Marcaine. An infraumbilical incision was made with a scalpel and carried through to the underlying layer of fascia with a hemostat. The 5 mm Fios Kii trocar was assembled with laparoscope within, and insufflator attached. While tenting up the abdomen manually, the trocar was passed through the anterior abdominal wall into the peritoneal cavity. Trocar was removed. Pneumoperitoneum was achieved. Survey of abdomen and pelvis revealed the above-noted findings. Two additional port sites were created. The first was in the patient's left lower quadrant, just superior medial to the left ASIS. The second was a hand's breath superior to and slightly medial to the first. Each was infiltrated with small amount of Marcaine prior to incision. A 5 mm incision was made at each site, making sure the large vessels were out of harm's way. A 5 mm Fios Kii port was inserted at each site, under direct visualization and without complication. The balloon on each of the three ports was inflated, holding each in place. The filmy adhesions between the cecum and the right abdominal sidewall were dissected with laparoscopic george. Dissection was kept well away from the cecum itself. Limited monopolar cautery was used in thicker portions of the adhesions. The 1st layer of these was released, and the remaining adhesions appeared to be filmy, physiologic, and without inflammation. Given this, I opted to discontinue any further dissection to discover the appendix, as I believe it was retrocecal and unrelated to her pelvic pain. All instruments were removed from the ports. Pneumoperitoneum was released. Ports were removed. Patient was placed back in neutral position. The skin of each port site was closed with a subcuticular stitch of 4-0 Monocryl. Surgical glue was applied above this. Patient was placed back in lithotomy position. The uterine manipulator was removed. Speculum inserted. Tenaculum was attached to the anterior lip of the cervix. Uterus sounds to 8 cm. The IUD is loaded into the insertion tube, inserted to the sounded depth, and the IUD is deployed. Insertion tube was removed. Strings are trimmed to 3 cm. Silver nitrate was used to obtain hemostasis at the puncture wound on the right side of the cervix. Speculum was removed. Rocha catheter was removed. Patient tolerated procedure well and was taken to recovery area in stable condition.
--- NOTE | 2024-03-24 08:36 | W.ANESCHARGE ---
Anesthesia Charges Start Date/Time Anesthesia Start Date: 03/24/24 Anesthesia Start Time: 07:14 Stop Date/Time Anesthesia Stop Date: 03/24/24 Anesthesia Stop Time: 08:33
[2024-03-24] MEDS: LACTATED RINGERS 1000 ML 1,000 ML 100 ML IV (09:06)
[2024-03-24] MEDS: KETOROLAC 30 MG/ML inj IVP (09:53)
[2024-03-24] MEDS: ACETAMINOPHEN 500 MG TABLET 1000 MG PO (09:53)
== END 2024-03-24 11:07 | disposition home or self-care (01) ==
LOC: OR 06:01
PROVIDERS: PCP Family Medicine; Visit Provider Obstetrics & Gynecology
PROC: (CPT 49320; principal; 2024-03-24 07:15)
DX: R10.2 Pelvic and perineal pain (principal); G89.29 Other chronic pain; N94.6 Dysmenorrhea, unspecified; K66.0 Peritoneal adhesions (postprocedural) (postinfection)
CPT/HCPCS: 49329; 58300; 00840; 36415; 81025; 86850; 86900; 86901; A9270; J0330; J0665; J1100; J1171; J1200; J1630; J1885; J2250; J2405; J2704; J3010; J7120; J7298

== ENCOUNTER 2024-04-30 08:59 | Outpatient (CLI) | payer BC, SELFPAY ==
--- OUTSIDE RECORDS SUMMARY | 2024-04-30 09:02 | XMS_ITS | Clinical Summary ---
Author Organization [employer] [facility] [employer] Address [place], [place] [address] Care Team Providers Care Commercial Loan Collection Officer Name Role Phone Kay Blanton Primary Care Provider [phone]- [phone] Allergies No known active allergies Medications Medication [...] trimester of first 11/16/2015 Overview (06/04/2016): CHEMA Pop. Blood type O+ Dating by 6w6d US not c/w LMP Tdap and flu given 03/19/16 It's a girl. Dad does not want to cut cord GBS negative Irregular menstrual cycle 01/29/2012 Encounters Date Type Department Care Team Description 03/24/2024 Orders Only [facility] Scanner 1 scan: (1-Ord) [place], LAPAROSCOPY, 03/24/2024 02/12/2024 Medical Messaging [facility] [address] [place] [address] Kay Blanton, pelvic pain 02/06/2024 4:00 PM CDT Ancillary Procedure [facility] [address] [place] [address] 02/06/2024 Travel from Last 3 Months Immunizations Name Administration Dates Next Due AMB Influenza, IIV4 PF (=>6 mos Flulaval,Fluzone Fluarix)(Flu Clinic Only) 04/13/2019 DTaP 02/13/1998 DTaP-HIB (TriHIBIT) 06/26/1994, 3,04/10/1993,02/06 Hepatitis B (Peds) 01/31/2003,09/02/2002, 003 Influenza, IIV3 (Age >=3 years) 02/05/2011 Influenza, IIV4 02/10/2020, 8,03/17/2017,03/19 MENINGOCOCCAL VACCINE 2 VIAL 2MO-55YO (MENVEO) 02/05/2011 MMR 09/28/2004,03/13/1994 Oral Polio Vaccine 06/26/1994,199 4,04/10/1993,02/06 Rabies Vaccine 07/06/2012,06/22/2012,06/15/2012 Td (Age >=7 [...] Status Comments Brother 1 Kristofer Brother 2 Victoria Father Raz Mother Suzy Sister 1 Delmar Sister 2 Ali Social History Tobacco Use Types Packs/Day Years Used Date Smoking Tobacco: Never Passive Smoke Exposure: Never Smokeless Tobacco: Never Alcohol Use Standard Drinks/Week Comments No 0 (1 standard drink = 0.6 oz pur e alcohol) PHQ-2 Answer Date Recorded PHQ-2 TOTAL SCORE 0 11/03/2023 Social Connections Answer Date Recorded Do you often feel lonely or isolated from those around you? 0 11/03/2023 Financial Resource Strain Answer Date R ecorded Difficulty of Paying Living Expenses 3 11/03/2023 Difficulty of Paying Living Expenses Not on file 11/03/2023 Food Insecurity Answer Date Recorded Do you worry your food will run out before you are able to buy more? 1 11/03/2023 Transportation Needs Answer Date Record ed Does lack of transportation keep you from medica l appointments? 1 11/03/2023 Does lack of transportation keep you from work, meetings or getting things that you need? 1 11/03/2023 Housing Stability Answer Date Recorded What is your housing situation today? 1 11/03/2023 Sex and Gender Information Value [...] Date Last Done Comments COVID-19 vaccine series ( season) 2024 Influenza for age 9-49 02/15/2024 , 04/13/2019, 03/05/2018, Additional history exists BMI (ht and wt on same day) for age 18+ 11/02/2024 11/03/2023, 09/04/2022, 12/21/2018, Additional history exists Depression screening for age 12+ 11/02/2024 11/03/2023, 09/04/2022, 01/12/2021, Additional history exists Pap test for age 21-65 09/05/2027 , 09/04/2022, 12/21/2018, Additional history exists Tetanus booster 08/27/2028 08/27/2018, 09/2015, 02/05/2011, Additional history exists Hepatitis C screening for age 18-79 Completed 10/31/2015 HIV for age 15-65 Completed 03/05/2018, 10/31/2015 Tdap Completed 08/27/2018, 09/2015, 02/05/2011 Pneumococcal series for age 6-64 Aged Out No longer eligible based on patient's age to complete this topic Procedures Procedure Name Priority Date/Time Associated Diagnosis Comments SCAN-OPERATIVE/PROC EDURE REPORT 03/24/2024 12:00 AM CDT US PELVIS COMPLETE TV Routine 02/06/2024 4:16 PM CDT Abdominal pain, LLQ (left lower quadrant) HPV HIGH RISK Routine 09/04/2022 4:21 PM CDT Cervical cancer screening ANTI HIV 1/2 Routine 03/05/2018 4:07 PM CDT Encounter for supervision of other normal , first trimester ANTI HCV Routine 10/31/2015 9:13 AM CDT , unspecified gestational age from Last 3 Months or Most Recently Relevant to Health Maintenance Results * SCAN-OPERATIVE/PROCEDURE REPORT (03/24/2024 12:00 AM CDT) Scanner OTHER * US PELVIS COMPLETE TV (02/06/2024 4:16 [...] significant free fluid. ? Procedure Note Blair Thorpe MD - 02/08/2024 For Patients: As a [...] @ 02/08/2024 8:13:48 AM (Electronically Signed) Kay Blanton DO US * HPV HIGH RISK (09/04/2022 4:21 PM CDT) TYPE 16 Negative Negative 09/09/2022 1:47 PM CDT [facility] TYPE 18 Negative Negative 09/09/2022 1:47 PM CDT [facility] OTHER HIGH RISK TYPES Negative Negative 09/09/2022 1:47 PM CDT [facility] Other (Cervical) Non-Blood / Unknown 09/04/2022 4:21 PM CDT 09/06/2022 11:33 AM CDT [facility] - 09/09/2022 1:47 PM CDT HPV types 16, 18, 31, 33, 35, 39, 45, 51, 52, 56, 58, 59, 66 and 68 DNA were undetectable or below the pre-set threshold. Methodology: Juwan Andie 4800 HPV Test Kay Blanton DO MICROBIOLOGY [facility] [address] [place] [address], [place] * ANTI HIV 1/2 (03/05/2018 4:07 PM CDT) HIV-1/HIV-2 ANTIBODY Non-Reacti ve Non-Reacti ve 03/05/2018 9:45 PM CDT [facility] Comment:HIV-1 p24 and HIV-1/ HIV-2 Ab not detected. Blood BLOOD SPECIMEN / Unknown Butterfly / Unknown 03/05/2018 4:07 PM CDT 03/05/2018 4:08 PM CDT Unique Mason NP SEND OUTS [facility] [address] [place] [address], * ANTI HCV (10/31/2015 9:13 AM CDT) HEPATITIS C ANTIBODY Non-Reacti ve Non-Reacti ve 10/31/2015 3:44 PM CDT [facility] Blood specimen (specimen) BLOOD SPECIMEN / Unknown Venipuncture / Unknown 10/31/2015 9:13 AM CDT 10/31/2015 9:13 AM CDT Narrative [facility] - 10/31/2015 3:44 PM CDT Antibodies to HCV not detected; does not exclude the possibility of exposure to HCV. Margareth GOMEZ SEND OUTS [facility] [address] [place] [address], from Last 3 Months or Most Recently Relevant to Health Maintenance Care Teams Commercial Loan Collection Officer Relationship Specialty Start Date End Date Kay Blanton DO [address] [place] [address] PCP - General Family Practice 10/24/15
--- NOTE | 2024-04-30 10:00 | CRLHL7_ITS ---
For Patients: As a result of the Century Cures Act, medical imaging exams and procedure reports are released immediately into your electronic medical record. You may view this report before your referring provider. If you have questions, please contact your health care provider. Indication: pain, evaluate IUD placement Technique: Real-time sonographic images of the pelvis were obtained transvaginally utilizing grayscale, color, and Doppler imaging. Comparison: None. Findings: Uterus: Appearance: Normal. Position: Retroflexed. Size: 6.4 x 4.1 x 4.5 cm. Endometrial stripe: 10 mm. Intrauterine device within the endometrial cavity. Right ovary: Size: 3.5 x 2.0 x 3.0 cm. Appearance: Normal morphology. No masses. Preserved blood flow. Left ovary: Size: 4.0 x 1.8 x 2.8 cm. Appearance: Normal morphology. No masses. Preserved blood flow. Free fluid: None. Impression: 1. Intrauterine device within the endometrial cavity. 2. Normal sonographic appearance of the bilateral ovaries. Dictated by Pedro Luis Bob MD @ 05/01/2024 10:37:25 AM (Electronically Signed)
== END 2024-04-30 09:00 | disposition home or self-care (01) ==
LOC: US 09:00
PROVIDERS: PCP Family Medicine; Visit Provider Physician Assistant
DX: R10.2 Pelvic and perineal pain (principal)
CPT/HCPCS: 76830; 93976

== ENCOUNTER 2025-06-15 09:46 | Emergency (ER) | payer BC, SELFPAY ==
--- OUTSIDE RECORDS SUMMARY | 2025-06-15 09:48 | XMS_ITS | Clinical Summary ---
Author Organization [email or web address] [facility] [employer] [facility] Address [address] [place] [address] Care Team Providers Care Deckhand Oyster Dredge Name Role Phone StepheninnaKay Primary Care Provider +1- [phone] Allergies No known active allergies Medications MedicationSigDispense QuantityRefillsLast FilledStart DateEnd DateStatus triamcinolone 0.1 % ointment Indications:Chronic eczemaApply topically to affected area(s) two times daily. 80 g 4Active norethindrone-eth estradiol, 1-35 mg-mcg, (ORTHO-NOVUM 135; NORTREL 1/35) 1-35 mg-mcg tablet Indications:Encounter for initial prescription of contraceptive pillsTake 1 Tablet by mouth once daily. 90 Tablet 4Active triamcinolone 0.5 % cream Indications:Spongiotic dermatitisApply to affected areas 1-2x's a day until improved. Try limit use to < 14 days straight. 454 g 4Active Active Problems ProblemNoted DateDiagnosed DatePap smear for cervical cancer nodabntvo72/19/2023 Overview (10/02/2022): 08/2022 NIL/HPV Negative Plan: Pap and HPV due 08/2027 Encounter for supervision of other normal , first mxxshybca32/20/2018 Overview (10/28/2018): Donn. May wait on gender [...] % 4.7 Past Medical History: Diagnosis Date ??? Encounter for supervision of other normal , first trimester 03/05/2018 ??? Irregular menstrual cycle 01/29/2012 ??? No Significant Past Medical History Past Surgical History: Procedure Laterality Date ??? NO PREVIOUS SURGERY No data on file. 2nd Problems (from 03/05/18 to present) No problems associated with this episode. CLINTON Ramos.....04/01/2018 12:42 PM Encounter for care in first trimester of first /02/2016 Overview (06/04/2016): FOC Donn. Blood type O+ Dating by 6w6d US not c/w LMP Tdap and flu given 03/19/16 It's a girl. Dad does not want to cut cord GBS negative Irregular menstrual cycle01/29/2012 Immunizations ImmunizationAdministration DatesNext DueAMB Influenza, IIV4 PF (=>6 mos Flulaval,Fluzone Fluarix)(Flu Clinic Only)04/13/2019DTaP02/13/1998DTaP-HIB (TriHIBIT)06/26/1994,05/31/1993,04/10/1993,02/06/1993Hepatitis B (Peds) 01/31/2003,09/02/2002,08/03/2002Influenza, IIV3 (Age >=3 years)02/05/2011 Influenza, MQG640/,03/05/2018,03/17/2017,03/19/2016MENINGOCOCCAL VACCINE 2 VIAL 2MO-55YO (MENVEO)02/05/2011MMR09/28/2004,03/13/1994Oral Polio Vaccine 06/26/1994,12/06/1993,04/10/1993,02/06/1993Rabies Lovdihb4607/06/2012,06/22/2012, 06/15/2012Td (Age >=7 Years)09/28/2004Tdap08/27/2018,03/19/2016,02/05/2011 Family History Medical HistoryRelationNameCommentsGood HealthBrother 1ZachGood HealthBrother 2 Woodydid have murmur at but told okGood HealthFatherClemGood HealthMother SandyGood HealthSister 1JadenGood HealthSister 2AliAsthmaNo Family History RelationNameStatusCommentsBrother 1ZachBrother 2WoodyFatherClemMotherSandySister 1JadenSister 2Ali Social History Tobacco UseTypesPacks/DayYears UsedDateSmoking Tobacco: NeverPassive Smoke Exposure: NeverSmokeless Tobacco: NeverAlcohol UseStandard Drinks/WeekCommentsNo 0 (1 standard drink = 0.6 oz pure alcohol)PHQ-2AnswerDate RecordedPHQ-2 TOTAL [id number] ConnectionsAnswerDate RecordedDo you often feel lonely or isolated from those around you?Financial Resource StrainAnswerDate RecordedDifficulty of Paying Living Xpiorfhh740ifficulty of Paying Living ExpensesNot on file11/03/2023Food InsecurityAnswerDate RecordedDo you worry your food will run out before you are able to buy more? Transportation NeedsAnswerDate RecordedDoes lack of transportation keep you from medical appointments?oes lack of transportation keep you from work, meetings or getting things that you need?Housing StabilityAnswerDate RecordedWhat is your housing situation today?UtilitiesAnswerDate RecordedDo you have trouble paying for utilities (for example, heat, electricity, water, phone)?regnantCommentsNoSex and Gender InformationValueDate RecordedSex Assigned at BirthNot on fileLegal SexFemale 06/29/2012 5:26 AM CSTGender IdentityNot on fileSexual OrientationNot on file Obstetrics History GravidaParaTermPretermABIABSABEctopicMultipleLivingLive [id number] OutcomeGATotal LaborLabor/2nd/9alCwshtxNsmUrcdAwunREAXofC0J8AghoDuyxBoegNes Paizql3706/15/20160044Klgm71d2wRTNYHTCK VACULiving Last Filed Vital Signs Vital SignReadingTime TakenCommentsBlood Xlesqpvm628/7807 9:13 AM CDT Fbqqc504301/06/2024 9:13 AM ALSLwksioiuesw96.4 ??C (97.6 ??F)09/14/2019 7:33 AM CDTRespiratory Rate--Oxygen Jkubiwbfea211%11/03/2023 8:55 AM CDTInhaled Oxygen Concentration--Hypbdu40.6 kg (105 lb)01/06/2024 9:13 AM BMDFlajid272.6 cm (5' 4)11/03/2023 8:55 AM CDTBody Mass Index18.02011/03/2023 8:55 AM CDT Plan of Treatment DateTypeDepartmentCare Team (Latest Contact Info)Lbfybegzsww20/31/2025 4:30 PM CSTOffice Visit [facility] [address] [place] [address] Hannah Ram, AYLA [address] [place] [address] 06/24/2025 9:00 AM CSTOB Encounter [facility] [address] [place] [address] 07/13/2025 10:25 AM CSTOB Encounter [facility] [address] [place] [address] Kay Blanton, [address] [place] [address] Health MaintenanceDue DateLast DoneCommentsHPV series for age 9-45 (2 - 3-dose series) (Declined)BMI (ht and wt on same day) for age 18+ , 09/04/2022, 12/21/2018, Additional history exists Depression screening for age 12+, 09/04/2022, 01/12/2021, Additional history existsCOVID-19 vaccine series (2024- season)2025 Influenza Vaccine (#1)/, 04/13/2019, 03/05/2018, Additional history existsPap test for age 21-650, 09/04/2022, 12/21/2018, Additional history existsTetanus taftyva80, 03/19/2016, 02/05/2011, Additional history existsHepatitis B series for 19+ Iehnrtznk74/18/2003, 09/02/2002, 08/03/2002Hepatitis C screening for age 18-79 Uggegaftp92/17/2016HIV for age 15-89Hgdwdpkun19/20/2018, 10/31/2015Pneumococcal series for age 6-49Aged OutNo longer eligible based on patient's age to complete this topic Procedures Procedure NamePriorityDate/TimeAssociated DiagnosisCommentsHPV HIGH RISKRoutine 09/04/2022 4:21 PM CDT Cervical cancer screening ANTI HIV 1/4Tudxnuz09/20/2018 4:07 PM CDT Encounter for supervision of other normal , first trimester (HC) ANTI CHAGbmjoiu77/17/2016 9:13 AM CDT , unspecified gestational age (HC) from Last 3 Months or Most Recently Relevant to Health Maintenance Results * HPV HIGH RISK (09/04/2022 4:21 PM CDT)ComponentValueRef RangeTest Method Analysis TimePerformed AtPathologist SignatureTYPE 16NegativeNegative 09/09/2022 1:47 PM CDSENT[facility]-CENTRAL LABORATORYTYPE 18 PrrfpsjkQyedycbj58/27/2023 1:47 PM CDCHOCTAW [facility]-CENTRAL LABORATORYOTHER HIGH RISK KMTFHOadufmmmLynghodc06/27/2023 1:47 PM CDCHOCTAW [facility]-CENTRAL LABORATORYSpecimen (Source)Anatomical Location / LateralityCollection Method / VolumeCollection TimeReceived TimeOther (Cervical)Non-Blood / Ynkbrnb3509/04/2022 4:21 PM CDT09/06/2022 11:33 AM CDT Narrative [facility] - 09/09/2022 1:47 PM CDT HPV types 16, 18, 31, 33, 35, 39, 45, 51, 52, 56, 58, 59, 66 and 68 DNA were undetectable or below the pre-set threshold. Methodology: Juwan Andie 4800 HPV Test Authorizing ProviderResult TypeResult StatusHeather Abi Blanton [facility] JOPLINICROBIOLOGY Final ResultPerforming OrganizationAddressCity/State/ZIP CodePhone Number [facility] [address] [place] [address], [place] * ANTI HIV 1/2 (03/05/2018 4:07 PM CDT)ComponentValueRef RangeTest Method Analysis TimePerformed AtPathologist SignatureHIV-1/HIV-2 ANTIBODYNon-Reactive Non-Ewhwqckq79/20/2018 9:45 PM CDALL[facility] Comment:HIV-1 p24 and HIV-1/HIV-2 Ab not detected.Specimen (Source)Anatomical Location / LateralityCollection Method / VolumeCollection TimeReceived Time BloodBLOOD SPECIMEN / UnknownButterfly / Lrknjzk8203/05/2018 4:07 PM CDT 03/05/2018 4:08 PM CDT Narrative Authorizing ProviderResult TypeResult StatusUnique Cami Espana Marlon NPSEND OUTSFinal ResultPerforming OrganizationAddressCity/State/ZIP CodePhone Number [facility] [address] [place] [address], * ANTI HCV (10/31/2015 9:13 AM CDT)ComponentValueRef RangeTest MethodAnalysis TimePerformed AtPathologist SignatureHEPATITIS C ANTIBODYNon-Reactive Non-Reactive 10/31/2015 3:44 PM CDALL[facility]ENTERCENTRAL LABORATORYSpecimen (Source)Anatomical Location / LateralityCollection Method / VolumeCollection TimeReceived TimeBlood specimen (specimen)BLOOD SPECIMEN / UnknownVenipuncture / Nbelnht8310/31/2015 9:13 AM CDT10/31/2015 9:13 AM CDT Narrative [facility] - 10/31/2015 3:44 PM CDT Antibodies to HCV not detected; does not exclude the possibility of exposure to HCV. Authorizing ProviderResult TypeResult StatusBridgediana Naidu PASLUCI OUTS Final ResultPerforming OrganizationAddressCity/State/ZIP CodePhone Number [facility] [address] [place] [address], from Last 3 Months or Most Recently Relevant to Health Maintenance Insurance * Guarantor: [employer]Account TypeRelation to PatientDate of BirthPhoneBilling AddressOcc Health/GgwaFhrdmftv90/01/2001 ATTN A/P [address] [place] [address] Care Teams Team MemberRelationshipSpecialtyStart DateEnd Date Kay Blanton DO [address] [address] PCP - GeneralFamnly Practice10/24/15
[2025-06-15 10:06] VITALS: BP 119/83; PULSE 122; RESP 18; TEMP 37.7; O2SAT 100
[2025-06-15 11:07] LABS: Hematocrit* 41.9 % (33.0-51.0); Hemoglobin* 14.2 gm/dL (12.0-16.0); Immature Granulocytes Abs Auto 0.01 K/uL (0.00-0.30); Immature Granulocytes Pct Auto 0.1 %; Mean Corpuscular HGB Conc 34 gm/dL (32-36); Mean Corpuscular Hemoglobin 30 pg (26-34); Mean Corpuscular Volume 90 fL (80-100); RDW Coefficient of Variation % 12.4 % (11.5-15.5); Red Blood Count* 4.67 m/uL (4.00-5.20); White Blood Count* 8.38 K/uL (4.50-11.00)
[2025-06-15 11:08] LABS: Lymphocytes Absolute Auto 0.50 K/uL (0.90-2.90)
[2025-06-15 11:09] LABS: Slide Review Reflex No
--- NOTE | 2025-06-15 11:15 | ED_ITS ---
HPI - General Adult General Chief complaint: Fever Stated complaint: flu symptoms/fever Time Seen by Provider: 06/15/25 09:52 Source: patient Mode of arrival: ambulatory Limitations: no limitations History of Present Illness HPI narrative: Patient is a 34-year-old female presenting to emergency department for cough and fever. Symptoms have been going on for the past 4 days she states. Was seen at urgent care a couple days ago and states viral swabs are negative at that time. She feels like symptoms have gotten worse since then. She has noticed a sore throat but only when she coughs. Also notice some chest pain that is worse with coughing. When she isn't coughing she feels a slight pressure in her chest. Does states her was sick a week ago. Denies any history of heart or lung disease. Does states she is her last menstrual period was the middle of April. Has not had an OB appointment yet. States she has diffuse body aches but denies any pelvic pain. Denies any vaginal bleeding. Denies headache, lightheadedness, dizziness, weakness, numbness, abdominal pain. No other concerns noted at this time. Related Data Previous Rx's ?Medication ?Instructions ?Recorded oseltamivir 75 mg capsule 75 mg PO BID 5 days #10 caps 06/15/25 Allergies Allergy/AdvReac Type Severity Reaction Status Date / Time Gluten Meal Allergy Unknown Nausea Uncoded 06/13/25 09:23 Review of Systems Status of ROS: Reports: 10 or more systems reviewed and unremarkable except as noted in History and below [facility] Medical History Encounter for preoperative assessment ?Z01.818 - Encounter for other preprocedural examination (ICD-10) History of vaginal delivery Salpingitis (09/07/19) ?N70.91 - Salpingitis, unspecified (ICD-10) Hemorrhagic cyst of left ovary (05/06/22) ?N83.202 - Unspecified ovarian cyst, left side (ICD-10) Surgical History History of laparoscopy (08/12/16) ?Z98.890 - Other specified postprocedural states (ICD-10) Family History Maternal Grandfather High blood pressure Paternal Grandmother Osteoporosis Social History Narrative: [id number] mom. . Nonsmoker. Rare alcohol use. Smoking Status: Never smoker Do you use any of these nicotine containing products: None Second hand tobacco smoke exposure: No How often do you have a drink containing alcohol: never AUDIT-C Alcohol total score: 0 Non-prescribed substance use: denies use Caffeine: Yes Exam Narrative: Exam Narrative: Const: Well-nourished, Well-developed, in mild distress Eyes: PERRL, no conjunctival injection, and symmetrical lids HENT: Atraumatic external nose and ears. Moist mucous membranes. Neck: Symmetric, trachea midline, No thyromegaly. CVS: RRR, No murmurs or gallops. Peripheral pulses 2+ and equal in all extremities RESP: Unlabored respiratory effort. Clear to auscultation bilaterally. GI: Nontender/Nondistended, No rebound or guarding. MSK:Extremities w/o deformity, Normal Active ROM Skin: Warm, Dry. No rashes or lesions. Neuro: Normal Muscle tone, No focal neurological deficits. Psych: Awake, Alert, & Oriented x3. Appropriate mood and affect. Const: Vital Signs, click to edit/add: Vital Signs - 24 hr 06/15/25 10:06 06/15/25 11:00 Temperature 99.8 F H Pulse Rate [Right Pulse Oximeter] 122 H Respiratory Rate 18 Blood Pressure [Ri ght Upper Arm] 119/83 Pulse Oximetry 100 Oxygen Delivery Me thod Room Air Room Air Course Vital Signs Vital signs: Initial Vital Signs Temperature 99.8 F H 06/15/25 10:06 Temperature Source Temporal Artery Scan 06/15/25 10:06 Pulse Rate 122 H 06/15/25 10:06 Pulse Rhythm Regular 06/15/25 10:06 Pulse Strength 3+ Normal 06/15/25 10:06 Respiratory Rate 18 06/15/25 10:06 Blood Pressure 119/83 06/15/25 10:06 Blood Pressure Mean 95 06/15/25 10:06 Blood Pressure Position Sitting 06/15/25 10:06 Pulse Oximetry 100 06/15/25 10:06 Oxygen Delivery Method Room Air 06/15/25 10:06 Vital Signs Temperature 99.8 F H 06/15/25 10:06 Pulse Rate 122 H 06/15/25 10:06 Respiratory Rate 18 06/15/25 10:06 Blood Pressure 119/83 06/15/25 10:06 Pulse Oximetry 100 06/15/25 10:06 Oxygen Delivery Method Room Air 06/15/25 10:06 Temperature 99.8 F H 06/15/25 10:06 Pulse Rate 122 H 06/15/25 10:06 Respiratory Rate 18 06/15/25 10:06 Blood Pressure 119/83 06/15/25 10:06 Pulse Oximetry 100 06/15/25 10:06 Oxygen Delivery Method Room Air 06/15/25 11:00 Medical Decision Making MDM Narrative Medical decision making narrative: Patient is a 34-year-old female presenting for flu-like symptoms. As he is having some chest discomfort will do EKG and troponin to look for signs of myocarditis or other cardiac abnormalities. Will do a D-dimer to look for signs of PE as that can also cause a fever in her symptoms. Order mono screen. For recheck viral swabs. Also order CBC, BMP, magnesium. Lab work came back with no concerning abnormalities. D-dimer within normal limits. EKG and troponin shows no concerning findings. She is flu positive. Grundy screen also came back positive. They had her on a twice because initial 1 was very faint line. I spoke to lab and that multiple people look at the 2nd 1 and they also believe it is still positive. Due that I will treat her for influenza with Tamiflu as she is and also give her restrictions for mono. She states she understands. We were waiting on doing a chest x-ray pending the D-dimer results. Is negative in with the known influenza diagnosis patient states she would like to hold off on the chest x-ray. This is reasonable. This time she is safe for discharge he will follow-up with her primary care provider. Tamiflu sent to her pharmacy Lab Data Labs: Lab Results 06/15/25 06/15/25 Range/Units 10:31 11:00 WBC 8.38 (4.50-11.00) K/uL RBC 4.67 (4.00-5.20) m/uL Hgb 14.2 (12.0-16.0) gm/dL Hct 41.9 (33.0-51.0) % MCV 90 (80-100) fL MCH 30 (26-34) pg MCHC 34 (32-36) gm/dL RDW Coeff of Dione 12.4 (11.5-15.5) % Plt Count 232 (140-440) K/uL Neut % (Auto) 81.5 H (42.0-72.0) % Lymph % (Auto) 6.2 L (20-44) % Grundy % (Auto) 12.1 H (0.0-11.0) % Eos % (Auto) 0.0 (0.0-7.0) % Baso % (Auto) 0.1 (0.0-3.0) % Neut # (Auto) 6.80 (1.7-7.0) K/uL Lymph # (Auto) 0.50 L (0.90-2.90) K/uL Grundy # (Auto) 1.00 H (0.00-0.90) K/UL Eos # (Auto) 0.00 (0.00-0.50) K/uL Baso # (Auto) 0.01 (0.00-0.30) K/uL Abs Immat Gran (auto) 0.01 (0.00-0.30) K/uL Imm/Tot Granulo (auto) 0.1 % D-Dimer Quant (PE/DVT) 0.44 (0.00-0.50) ug/ml Sodium 134 L (135-149) mmol/L Potassium 3.9 (3.6-5.1) mmol/L Chloride 101 (96-114) mmol/L Carbon Dioxide 25 (20-32) mmol/L Anion Gap 8 (7-15) mEq/L BUN 9 (5-24) mg/dL Creatinine 0.5 (0.5-1.5) mg/dL Estimated GFR 128 ml/min Glucose 97 (60-115) mg/dL Calcium 9.0 (8.4-10.6) mg/dL Magnesium 1.8 (1.5-2.6) mg/dL POC Troponin I High Sensi < 2.9 L (2.9-13.0) pg/mL SARS-CoV-2 (PCR) Negative SARS-CoV-2 (Negative) Monoscreen POSITIVE A (Negative) Influenza Type A (PCR) POSITIVE PCR FLU A A (Negative) Influenza Type B (PCR) Negative PCR FLU B (Negative) RSV (PCR) Negative PCR RSV (Negative) ECG Data Attestation: I personally reviewed and interpreted this ECG as follows: Prior ECG tracings: not available for review Interpretation: Sinus tachycardia with a rate of 111 beats per minute, normal intervals, normal axis, no ST or T-wave abnormalities. Discharge Plan Discharge Clinical Impression: Influenza A Infectious mononucleosis Qualifiers: Infectious mononucleosis etiology: unspecified organism Infectious mononucleosis complication: without complication Qualified Code(s): B27.90 - Infectious mononucleosis, unspecified without complication Patient Disposition: Home, Self-Care Condition: Stable Instructions: Mononucleosis (ED), Influenza (ED) Additional Instructions: You do have influenza a. Tamiflu was prescribed for this. When checking for mono the initial test had a faint positive long line. Lab we ran it and the 2nd 1 also had a faint positive line. Several people reviewed it and I do believe it is positive. Due to this I do recommend holding off any contact sports or anything else that may cause injuries he your back or abdomen as your at an increased risk of splenic rupture. I do recommend close follow-up with your primary care providers. Return to emergency department for new or worsening symptoms. Prescriptions: New oseltamivir 75 mg capsule 75 mg PO BID 5 Days Qty: 10 0RF Follow Up/Referrals: Kay Blanton DO [Primary Care Provider, Family Practice] Stand Alone Forms: [employer] Info Instructions
[2025-06-15 11:21] LABS: Chloride* 101 mmol/L (96-114); Potassium* 3.9 mmol/L (3.6-5.1); Sodium* 134 mmol/L (135-149)
[2025-06-15 11:24] LABS: Anion Gap 8 mEq/L (7-15); Blood Urea Nitrogen* 9 mg/dL (5-24); Carbon Dioxide* 25 mmol/L (20-32); Creatinine* 0.5 mg/dL (0.5-1.5); Estimated Glomerular Filt Rate 128 ml/min
[2025-06-15 11:25] LABS: Calcium* 9.0 mg/dL (8.4-10.6); D Dimer Quantitative* 0.44 ug/ml (0.00-0.50); Glucose* 97 mg/dL (60-115)
[2025-06-15 11:40] LABS: Mono Screen* POSITIVE (Negative)
[2025-06-15 11:44] LABS: PCR FLU A POSITIVE PCR FLU A (Negative); PCR FLU B Negative PCR FLU B (Negative); PCR RSV Negative PCR RSV (Negative); SARS PCR* Negative SARS-CoV-2 (Negative)
[2025-06-15 12:25] VITALS: BP 122/65; PULSE 102; RESP 20; O2SAT 98
== END 2025-06-15 12:25 | disposition home or self-care (01) ==
PROVIDERS: Emergency Provider Student in an Organized Health Care Education/Training Program; PCP Family Medicine
DX: J10.1 Influenza due to other identified influenza virus with other respiratory manifestations (principal); B27.90 Infectious mononucleosis, unspecified without complication; R07.9 Chest pain, unspecified
CPT/HCPCS: 36415; 80048; 83735; 84484; 85025; 85379; 86308; 87631; 93005; 99284; 99285